=== PATIENT | male | born 1975 | race Caucasian/White ===

== ENCOUNTER 2021-01-04 18:56 | Emergency (ER) | payer OTHER ==
[~2021-01-04 18:56] MED LIST: CRESTOR5 MG PO; CYCLOBENZAPRINE10 MG PO; MOBIC15 MG PO; OMEPRAZOLE20 MG PO; PLAQUENIL 200200 MG PO; ULTRAM50 MG PO
== END 2021-01-04 22:08 | disposition home or self-care (01) ==
LOC: ER1 18:56
DX: R51.9 Headache, unspecified (principal)
CPT/HCPCS: 70450; 96374; 96375; 99284; J0780; J1200; J1885; J7030